=== PATIENT | male | born 1980 | race Caucasian/White ===

== ENCOUNTER 2023-06-08 14:08 | Inpatient (IN) | payer OTHER ==
[~2023-06-08] VITALS: Ht 170.2 cm; Wt 66.2 kg
[2023-06-08] MEDS ORDERED: PREG75 PO (15:19)
[2023-06-08] MEDS ORDERED: LEVO88TA4 PO (15:19)
[2023-06-08] MEDS ORDERED: METH150T PO (15:19)
[2023-06-08] MEDS ORDERED: OXCA300T70 PO ×2 (15:19)
[2023-06-08] MEDS ORDERED: LINA290C PO (15:19)
[2023-06-08] MEDS ORDERED: VENL-66 PO (15:19)
[2023-06-08] MEDS ORDERED: BUPR1FIL7 SL (15:19)
[2023-06-08] MEDS ORDERED: AMOX1TAB16 PO (15:19)
[2023-06-08] MEDS ORDERED: PANT20TA18 PO (15:19)
[2023-06-08] MEDS ORDERED: CALC625T PO (15:19)
[2023-06-08] MEDS ORDERED: VENL-67 PO (15:19)
[2023-06-08] MEDS ORDERED: CLOZ25TA52 PO (15:19)
[2023-06-08] MEDS ORDERED: LEVAHFA IH (15:19)
[2023-06-08 15:39] LABS: BASOPHILS % (AUTO) 0.7 % (0.0-2.0); EOSINOPHILS % (AUTO) 1.4 % (1.0-6.0); HEMATOCRIT 37.4 % (41-53); HEMOGLOBIN 12.6 g/dL (13.5-17.5); LYMPHOCYTES # (AUTO) 2.9 K/uL (1.0-4.8); MEAN CORPUSCULAR HEMOGLOBIN 32.3 pg (26.0-34.0); MEAN CORPUSCULAR HGB CONC 33.6 G/dL (31.0-37.0); MEAN CORPUSCULAR VOLUME 96 fL (80-100); MONOCYTES # (AUTO) 0.8 K/uL (0.1-1.0); MONOCYTES % (AUTO) 10.1 % (2.0-9.0); NEUTROPHILS # (AUTO) 4.4 K/uL (1.8-7.7); NEUTROPHILS % (AUTO) 52.8 % (40.0-70.0); PLATELET COUNT (AUTO) 225 K/uL (150-450); RED BLOOD CELL COUNT(AUTO) 3.89 MIL/uL (4.50-5.90); RED CELL DISTRIBUTION WIDTH 13.2 % (11.5-14.5); WHITE BLOOD COUNT (AUTO) 8.4 K/uL (4.5-11.0)
[2023-06-08] MEDS: MAG HYDROX/ALUMINUM HYD/SIMETH 30 ML SUSPENSION UDCUP PO ONE (15:39)
[2023-06-08] MEDS: ACETAMINOPHEN 500 MG TABLET PO ONE (15:40)
[2023-06-08] MEDS: ONDANSETRON HCL 4 MG/2 ML VIAL IVP ONE (15:46)
[2023-06-08] MEDS: FAMOTIDINE 20 MG/2 ML VIAL IVP ONE (15:46)
[2023-06-08 15:47] LABS: ANION GAP 6 mmol/L (8-16); CALCIUM, TOTAL 8.9 mg/dL (8.8-10.5); CARBON DIOXIDE 30 mmol/L (22-29); CHLORIDE 103 mmol/L (98-107); CREATININE 0.66 mg/dL (0.60-1.30); GLOMERULAR FILTR. RATE CALC > 60 mL/min (>60); GLUCOSE,RANDOM 86 mg/dL (70-110); POTASSIUM 4.2 mmol/L (3.5-5.1); SODIUM SERUM 138 mmol/L (136-145); UREA NITROGEN, BLOOD 18 mg/dL (7-18)
[2023-06-08 15:52] LABS: PROTHROMBIN TIME 10.4 SEC (9.4-11.6)
[2023-06-08 15:53] LABS: B-TYPE NATRIURETIC PEPTIDE 21 pg/mL (0-100)
[2023-06-08 15:55] LABS: TROPONIN I-HIGH SENSITIVITY 4 ng/L (<76)
[2023-06-08] MEDS ORDERED: IOHEXOL 350 MG/ML 100 ML VIAL ONE (15:59)
[2023-06-08 16:00] LABS: ALANINE AMINOTRANSFERASE 24 U/L (12-78); ALBUMIN 3.4 g/dL (3.4-5.0); ALKALINE PHOSPHATASE 82 U/L (46-116); ASPARTATE AMINOTRANSFERASE 13 U/L (15-37); BILIRUBIN,TOTAL 0.1 mg/dL (0.1-1.0); CREATINE KINASE, TOTAL ONLY 74 U/L (39-308); LIPASE 35 U/L (16-77); TOTAL PROTEIN, SERUM 6.5 g/dL (6.4-8.2)
[2023-06-08] MEDS ORDERED: SODIUM CHLORIDE 0.9% 100 ML ONE (16:00)
[2023-06-08 16:04] LABS: COVID AG,FIA SOURCE NASAL SWAB
[2023-06-08 16:28] LABS: SARS-COV2 (COVID) ANTIGEN,FIA Negative (Negative)
[2023-06-08] MEDS ORDERED: ACETAMINOPHEN 325 MG TABLET PO PRN (18:15)
[2023-06-08] MEDS ORDERED: PEG 3350/NA SULF,BICARB,CL/KCL 4000 ML SOLUTION PO ONE (18:15)
[2023-06-08] MEDS ORDERED: 0.9% SODIUM CHLORIDE 10 ML SYRINGE IVP PRN (18:15)
[2023-06-08] MEDS: PEG 3350/NA SULF,BICARB,CL/KCL 4000 ML SOLUTION PO ONE (19:00)
[2023-06-08] MEDS ORDERED: ZOLPIDEM TARTRATE 5 MG TABLET PO PRN (19:30)
[2023-06-08 20:30] VITALS: BP 106/69; PULSE 64; RESP 18; TEMP 98.1
[2023-06-08] MEDS: OXcarbazepine 300 MG TABLET PO SCH (21:05)
[2023-06-08] MEDS: PREGABALIN 75 MG CAPSULE PO SCH (21:05)
[2023-06-08] MEDS: CloZAPine 25 MG TABLET PO SCH (21:10)
[2023-06-08] MEDS: AMOX TR/POT CLAV 875 MG/125 MG TABLET PO SCH (21:10)
[2023-06-08] MEDS: ACETAMINOPHEN 325 MG TABLET PO PRN (22:21)
[2023-06-08] MEDS: HEPARIN SODIUM,PORCINE 5,000 UNITS/ML VIAL SQ SCH (23:53)
[2023-06-09 03:33] VITALS: BP 109/70; PULSE 62; RESP 19; TEMP 98.2
[2023-06-09] MEDS: LEVOTHYROXINE SODIUM 88 MCG TABLET PO SCH (05:31)
[2023-06-09 06:57] LABS: BASOPHILS % (AUTO) 0.5 % (0.0-2.0); EOSINOPHILS % (AUTO) 0.7 % (1.0-6.0); HEMATOCRIT 34.9 % (41-53); HEMOGLOBIN 11.7 g/dL (13.5-17.5); LYMPHOCYTES # (AUTO) 1.6 K/uL (1.0-4.8); LYMPHOCYTES % (AUTO) 30.7 % (22.0-44.0); MEAN CORPUSCULAR HEMOGLOBIN 32.4 pg (26.0-34.0); MEAN CORPUSCULAR HGB CONC 33.4 G/dL (31.0-37.0); MEAN CORPUSCULAR VOLUME 97 fL (80-100); MONOCYTES # (AUTO) 0.5 K/uL (0.1-1.0); MONOCYTES % (AUTO) 9.6 % (2.0-9.0); NEUTROPHILS # (AUTO) 3.1 K/uL (1.8-7.7); NEUTROPHILS % (AUTO) 58.5 % (40.0-70.0); PLATELET COUNT (AUTO) 201 K/uL (150-450); RED CELL DISTRIBUTION WIDTH 13.4 % (11.5-14.5); WHITE BLOOD COUNT (AUTO) 5.4 K/uL (4.5-11.0)
[2023-06-09 07:19] LABS: ALANINE AMINOTRANSFERASE 20 U/L (12-78); ALBUMIN 3.2 g/dL (3.4-5.0); ALKALINE PHOSPHATASE 77 U/L (46-116); ANION GAP 7 mmol/L (8-16); ASPARTATE AMINOTRANSFERASE 15 U/L (15-37); BILIRUBIN,TOTAL 0.4 mg/dL (0.1-1.0); CALCIUM, TOTAL 8.9 mg/dL (8.8-10.5); CARBON DIOXIDE 28 mmol/L (22-29); CHLORIDE 102 mmol/L (98-107); CREATININE 0.62 mg/dL (0.60-1.30); GLOMERULAR FILTR. RATE CALC > 60 mL/min (>60); GLUCOSE,RANDOM 82 mg/dL (70-110); POTASSIUM 3.9 mmol/L (3.5-5.1); SODIUM SERUM 137 mmol/L (136-145); TOTAL PROTEIN, SERUM 6.1 g/dL (6.4-8.2); UREA NITROGEN, BLOOD 12 mg/dL (7-18)
[2023-06-09 08:00] VITALS: BP 128/74; PULSE 68; RESP 20; TEMP 97.2; O2SAT 99
[2023-06-09 08:09] VITALS: BP 116/60; PULSE 69; RESP 18; TEMP 97.8
[2023-06-09] MEDS: PANTOPRAZOLE SODIUM 40 MG DR TABLET PO SCH (08:54)
[2023-06-09] MEDS: OXcarbazepine 300 MG TABLET PO SCH (08:54)
[2023-06-09] MEDS: SODIUM CHLORIDE 0.9% 1,000 ML IV SCH (16:57)
[2023-06-09 17:38] VITALS: BP 107/62; PULSE 82; RESP 20; TEMP 97.2; O2SAT 99
[2023-06-09 18:20] LABS: BASOPHILS % (AUTO) 0.5 % (0.0-2.0); EOSINOPHILS % (AUTO) 0.9 % (1.0-6.0); HEMATOCRIT 36.1 % (41-53); HEMOGLOBIN 12.1 g/dL (13.5-17.5); LYMPHOCYTES # (AUTO) 2.3 K/uL (1.0-4.8); MEAN CORPUSCULAR HEMOGLOBIN 32.1 pg (26.0-34.0); MEAN CORPUSCULAR HGB CONC 33.4 G/dL (31.0-37.0); MEAN CORPUSCULAR VOLUME 96 fL (80-100); MONOCYTES # (AUTO) 0.6 K/uL (0.1-1.0); MONOCYTES % (AUTO) 9.2 % (2.0-9.0); NEUTROPHILS # (AUTO) 3.2 K/uL (1.8-7.7); NEUTROPHILS % (AUTO) 52.4 % (40.0-70.0); PLATELET COUNT (AUTO) 197 K/uL (150-450); RED BLOOD CELL COUNT(AUTO) 3.76 MIL/uL (4.50-5.90); RED CELL DISTRIBUTION WIDTH 13.3 % (11.5-14.5); WHITE BLOOD COUNT (AUTO) 6.1 K/uL (4.5-11.0)
[2023-06-09 18:26] LABS: TROPONIN I-HIGH SENSITIVITY 5 ng/L (<76)
[2023-06-09 19:25] VITALS: BP 111/71; PULSE 63; RESP 18; TEMP 98.2
[2023-06-09 21:53] VITALS: BP 123/82; PULSE 78; RESP 18; TEMP 97.9
[2023-06-09 23:01] LABS: GLUCOMETER DEV NAME(LOC) 4E.2; GLUCOSE,POINT OF CARE 74 MG/DL (70-110)
[2023-06-10 00:54] VITALS: BP 128/70; PULSE 53; RESP 18; TEMP 97.6
[2023-06-10 05:06] VITALS: BP 99/56; PULSE 71; RESP 18; TEMP 98.2
[2023-06-10 08:04] VITALS: BP 111/61; PULSE 70; RESP 18; TEMP 98
[2023-06-10] MEDS ORDERED: LEVALBUTEROL TARTRATE HFA 45 MCG/PUFF 15 GM INHALER IH PRN (15:30)
[2023-06-10] MEDS ORDERED: IBUPROFEN 600 MG TABLET PO PRN (15:30)
[2023-06-10] MEDS ORDERED: PANTOPRAZOLE SODIUM 40 MG DR TABLET PO SCH (16:00)
[2023-06-10] MEDS: LACTULOSE 20 GM/30 ML SOLUTION UDCUP PO SCH (16:25)
[2023-06-10] MEDS: VENLAFAXINE HCL 75 MG ER CAPSULE PO ONE (16:26)
[2023-06-10] MEDS: VENLAFAXINE HCL 37.5 MG ER CAPSULE PO ONE (16:26)
[2023-06-10] MEDS: BRIMONIDINE TARTRATE 0.1% 5 ML OPHTHALMIC SOLUTION OU SCH (16:27)
[2023-06-10] MEDS: DORZOLAMIDE HCL 2% 10 ML OPHTHALMIC SOLUTION OU SCH (16:27)
[2023-06-10] MEDS: BUPRENORPHINE HCL/NALOXONE HCL 2-0.5 MG SUBLINGUAL TABLET SL ONE (16:40)
[2023-06-10 20:07] VITALS: BP 109/58; PULSE 73; RESP 18; TEMP 97.6
[2023-06-10] MEDS ORDERED: [UNRECOGNIZED DRUG - OTHER] PO SCH (21:00)
[2023-06-10] MEDS: LATANOPROST 0.005% 2.5 ML OPHTHALMIC SOLUTION OU SCH (21:07)
[2023-06-10] MEDS: PANTOPRAZOLE SODIUM 40 MG DR TABLET PO SCH (21:09)
[2023-06-11 04:39] VITALS: BP 118/73; PULSE 79; RESP 18; TEMP 98.1
[2023-06-11] MEDS: LINACLOTIDE 145 MCG CAPSULE PO SCH (06:26)
[2023-06-11] MEDS ORDERED: LINACLOTIDE 290 MCG CAPSULE PO SCH (06:30)
[2023-06-11 08:08] VITALS: BP 111/60; PULSE 60; RESP 18; TEMP 98.3
[2023-06-11] MEDS: DOCUSATE SODIUM 100 MG CAPSULE PO SCH (08:44)
[2023-06-11] MEDS: CALCIUM POLYCARBOPHIL 625 MG TABLET PO SCH (08:46)
[2023-06-11] MEDS: BUPRENORPHINE HCL/NALOXONE HCL 2-0.5 MG SUBLINGUAL TABLET SL SCH (08:56)
[2023-06-11] MEDS ORDERED: [UNRECOGNIZED DRUG - OTHER] PO SCH (09:00)
[2023-06-11] MEDS ORDERED: [UNRECOGNIZED DRUG - OTHER] SL SCH (09:00)
[2023-06-11] MEDS: VENLAFAXINE HCL 37.5 MG ER CAPSULE PO SCH (12:46)
[2023-06-11] MEDS: VENLAFAXINE HCL 75 MG ER CAPSULE PO SCH (12:46)
[2023-06-11 20:46] VITALS: BP 123/62; PULSE 77; RESP 18; TEMP 97.8
[2023-06-12 04:50] VITALS: BP 105/67; PULSE 68; RESP 18; TEMP 98.1
[2023-06-12 08:49] VITALS: BP 106/75; PULSE 68; RESP 18; TEMP 98.2
[2023-06-12] MEDS ORDERED: BUPR1TAB45 SL (16:53)
[2023-06-12] MEDS ORDERED: BRIM5DRO32 OU (16:59)
[2023-06-12] MEDS ORDERED: DOCU-385 PO (17:06)
[2023-06-12] MEDS ORDERED: DORZ10DR6 OU (17:07)
[2023-06-12] MEDS ORDERED: LACT10SO10 PO (17:10)
[2023-06-12] MEDS ORDERED: XALA2.5OS OU (17:14)
[2023-06-12] MEDS ORDERED: ACET-2247 PO (17:16)
[2023-06-12] MEDS ORDERED: IBUP-1492 PO (17:17)
[2023-06-12] MEDS ORDERED: ZOLP-280 PO (17:17)
[2023-06-12 20:11] VITALS: BP 114/67; PULSE 91; RESP 19; TEMP 98.4
== END 2023-06-12 22:30 | DRG 395 ==
LOC: EMS 14:09 → 6N 18:56 → 5S 06-09 19:44 → 6S 06-10 19:30
PROVIDERS: ADMIT Hospitalist; ATTEND Hospitalist
DX: T18.4XXA Foreign body in colon, initial encounter (principal); E03.9 Hypothyroidism, unspecified; J44.9 Chronic obstructive pulmonary disease, unspecified; F31.9 Bipolar disorder, unspecified; Z20.822 Contact with and (suspected) exposure to COVID-19; Z88.1 Allergy status to other antibiotic agents; W44.E9XA Other non-magnetic metal objects entering into or through a natural orifice, initial encounter; Y93.89 Activity, other specified; Y92.89 Other specified places as the place of occurrence of the external cause; Y99.8 Other external cause status
CPT/HCPCS: 70450; 70486; 71045; 72125; 74018; 74019; 74176; 74177; 80053; 82271; 82550; 82962; 83690; 83880; 84484; 85025; 85610; 85730; 93005; 99285; J1644; J2405; J3490; J7050; Q9967; 36415-L1; 36415-TC

== ENCOUNTER 2024-11-02 23:38 | Inpatient (IN) | payer OTHER ==
[~2024-11-02] VITALS: Ht 170.2 cm; Wt 78.0 kg
[~2024-11-02 23:38] MED LIST: ARIP2TAB27 PO; ARIP2TAB3 PO; BISA10SU11 PR; BRIM5DRO9 OU; BUPR1FIL5 SL; BUPR1TAB46 SL; CLOZ25TA52 PO; DOCU-385 PO; DORZ10DR32 OU; HYDR30CR39 TP; LATA2.5D7 OU; LEVA15HF3 IH; LEVO88TA4 PO; LINA290C PO; MAGN-169 PO; MINE133E26 PR; NALO4SPR NASAL; OMEP-148 PO; ONDA-104 PO; OXCA300T70 PO; PANT20TA PO; SENN-376 PO; SUCR1TAB2 PO; VENL-68 PO
[2024-11-03 01:02] LABS: PLATELET COUNT (AUTO) 334 K/uL (150-450); RED BLOOD CELL COUNT(AUTO) 3.71 MIL/uL (4.50-5.90); RED CELL DISTRIBUTION WIDTH 13.2 % (11.5-14.5); WHITE BLOOD COUNT (AUTO) 8.6 K/uL (4.5-11.0)
[2024-11-03 01:06] LABS: CALCIUM, TOTAL 8.7 mg/dL (8.8-10.5); CREATININE 0.76 mg/dL (0.60-1.30); GLOMERULAR FILTR. RATE CALC > 60 mL/min (>60); GLUCOSE,RANDOM 115 mg/dL (70-110); SODIUM SERUM 142 mmol/L (136-145); UREA NITROGEN, BLOOD 16 mg/dL (7-18)
[2024-11-03 02:34] LABS: APPEARANCE,URINE CLEAR (CLEAR); GLUCOSE, URINE (UA) NEGATIVE (NEGATIVE); LEUKOCYTE ESTERASE ,URINE NEGATIVE (NEGATIVE); NITRATE,URINE NEGATIVE (NEGATIVE); OCCULT BLOOD,URINE NEGATIVE (NEGATIVE); PH,URINE DRUG SCREEN 6.5 (5.0-8.0); SPECIFIC GRAVITIY, URINE 1.011 (1.003-1.030)
[2024-11-03 02:40] LABS: ALCOHOL, URINE DRUG SCREEN NEGATIVE (NEGATIVE); AMPHET/METH SCREEN,URINE NEGATIVE (NEGATIVE); BARBITURATE SCREEN, URINE NEGATIVE (NEGATIVE); CANNABINOID SCREEN,URINE NEGATIVE (NEGATIVE); COCAINE SCREEN,URINE NEGATIVE (NEGATIVE); METHADONE SCREEN, URINE NEGATIVE (NEGATIVE)
[2024-11-03] MEDS: PANTOPRAZOLE SODIUM 40 MG/VIAL IVP ONE (04:04)
[2024-11-03] MEDS: SODIUM CHLORIDE 0.9% 1,000 ML IV ONE (04:04)
[2024-11-03] MEDS ORDERED: FLUMAZENIL 0.1 MG/ML 5 ML VIAL IVP ONE (05:21)
[2024-11-03] MEDS ORDERED: SODIUM TETRADECYL SULFATE 3% 60 MG/2 ML VIAL IVP ONE (05:21)
[2024-11-03] MEDS ORDERED: ATROPINE SULFATE 0.1 MG/ML 10 ML SYRINGE IVP ONE (05:21)
[2024-11-03] MEDS ORDERED: EPINEPHrine 1:10,000 [1 MG/10 ML] SYRINGE ONE (05:21)
[2024-11-03] MEDS ORDERED: NALOXONE HCL 0.4 MG/ML VIAL ONE (05:21)
[2024-11-03] MEDS ORDERED: FentaNYL CITRATE PF 100 MCG/2 ML VIAL IVP PRN (06:30)
[2024-11-03] MEDS ORDERED: MEPERIDINE-PF 25 MG/ML VIAL IVP PRN (06:30)
[2024-11-03] MEDS: OXYGEN THERAPY IH SCH (08:00)
[2024-11-03 08:13] VITALS: BP 122/83; PULSE 71; RESP 18; TEMP 98; O2SAT 100
[2024-11-03] MEDS ORDERED: LINA145C PO (10:50)
[2024-11-03] MEDS ORDERED: HYDR-4808 PO (10:50)
[2024-11-03] MEDS ORDERED: LACT10SO85 PO (10:50)
[2024-11-03] MEDS: PEG 3350/NA SULF,BICARB,CL/KCL 4000 ML SOLUTION PO ONE (11:27)
[2024-11-03] MEDS ORDERED: DEXAMETHASONE SOD PHOS 4 MG/ML VIAL ONE (12:00)
[2024-11-03] MEDS ORDERED: FentaNYL CITRATE PF 100 MCG/2 ML VIAL ONE (12:00)
[2024-11-03] MEDS ORDERED: PROPOFOL 1% 20 ML VIAL IVP ONE (12:00)
[2024-11-03] MEDS ORDERED: MIDAZOLAM HCL 2 MG/2 ML VIAL ONE (12:00)
[2024-11-03] MEDS ORDERED: SUGAMMADEX SODIUM 200 MG/2 ML VIAL IVP ONE (12:00)
[2024-11-03] MEDS ORDERED: ROCURONIUM BROMIDE 10 MG/ML 5 ML VIAL ONE (12:00)
[2024-11-03] MEDS ORDERED: LIDOCAINE/PF 2% 5 ML VIAL ONE (12:00)
[2024-11-03] MEDS ORDERED: ONDANSETRON HCL 4 MG/2 ML VIAL ONE (12:00)
[2024-11-03 19:19] VITALS: BP 135/64; PULSE 85; RESP 18; TEMP 97.8; O2SAT 96
[2024-11-03] MEDS: MELATONIN 3 MG TABLET PO PRN (21:58)
[2024-11-04] MEDS: ZOLPIDEM TARTRATE 5 MG TABLET PO ONE (00:19)
[2024-11-04 04:09] VITALS: BP 104/68; PULSE 79; RESP 17; TEMP 97.9; O2SAT 97
[2024-11-04 07:16] VITALS: BP 103/73; PULSE 75; RESP 20; TEMP 98.8; O2SAT 98
[2024-11-04] MEDS ORDERED: SODIUM CHLORIDE 0.9% 1,000 ML ONE (10:24)
[2024-11-04] MEDS ORDERED: FLUMAZENIL 0.1 MG/ML 5 ML VIAL IVP ONE (11:16)
[2024-11-04] MEDS ORDERED: SODIUM TETRADECYL SULFATE 3% 60 MG/2 ML VIAL IVP ONE (11:17)
[2024-11-04] MEDS ORDERED: EPINEPHrine 1:10,000 [1 MG/10 ML] SYRINGE ONE (11:17)
[2024-11-04] MEDS ORDERED: NALOXONE HCL 0.4 MG/ML VIAL ONE (11:17)
[2024-11-04] MEDS ORDERED: ATROPINE SULFATE 0.1 MG/ML 10 ML SYRINGE IVP ONE (11:17)
[2024-11-04] MEDS: SODIUM CHLORIDE 0.9% 1,000 ML IV ONE (11:48)
[2024-11-04] MEDS ORDERED: PROPOFOL 1% 20 ML VIAL IVP ONE (12:00)
[2024-11-04] MEDS ORDERED: IPRATROPIUM BROMIDE 0.5 MG/2.5 ML NEB SOLUTION NEB PRN (12:15)
[2024-11-04] MEDS ORDERED: MAGNESIUM HYDROXIDE SUSPENSION 30 ML UDCUP PO PRN (12:15)
[2024-11-04] MEDS ORDERED: ALBUTEROL SULFATE 2.5 MG/0.5 ML NEB SOLUTION NEB PRN (12:15)
[2024-11-04] MEDS ORDERED: ONDANSETRON HCL 4 MG/2 ML VIAL IVP PRN (12:15)
[2024-11-04] MEDS ORDERED: BISACODYL 10 MG RECTAL RECTAL SUPPOSITORY PR PRN (12:15)
[2024-11-04] MEDS ORDERED: SODIUM CHLORIDE 0.9% 1,000 ML IV ONE (15:00)
[2024-11-04] MEDS: HEPARIN SODIUM,PORCINE 5,000 UNITS/ML VIAL SQ SCH (16:48)
[2024-11-04 17:00] VITALS: BP 115/85; PULSE 75; RESP 20; TEMP 97.3; O2SAT 100
[2024-11-04 20:10] VITALS: BP 128/74; PULSE 78; RESP 18; TEMP 98.2; O2SAT 100
[2024-11-04] MEDS: ZOLPIDEM TARTRATE 5 MG TABLET PO PRN (22:23)
[2024-11-05] MEDS: ACETAMINOPHEN 325 MG TABLET PO PRN (01:37)
[2024-11-05 03:20] VITALS: BP 105/61; PULSE 78; RESP 18; TEMP 97.7; O2SAT 97
[2024-11-05] MEDS: BUPRENORPHINE HCL/NALOXONE HCL 8-2 MG SUBLINGUAL TABLET SL ONE (03:21)
[2024-11-05] MEDS: PANTOPRAZOLE SODIUM 40 MG DR TABLET PO SCH (08:49)
[2024-11-05] MEDS ORDERED: LEVALBUTEROL TARTRATE HFA 45 MCG/PUFF 15 GM INHALER IH PRN (10:45)
[2024-11-05] MEDS ORDERED: MAGNESIUM HYDROXIDE SUSPENSION 30 ML UDCUP PO PRN (10:45)
[2024-11-05] MEDS ORDERED: SENNOSIDES 8.6 MG TABLET PO PRN (10:45)
[2024-11-05] MEDS ORDERED: MISC MED-CONVERTED FROM AMBULATORY (Naloxone HCl (Narcan) 1 SPRAY) NASAL PRN (10:45)
[2024-11-05] MEDS: LINACLOTIDE 145 MCG CAPSULE PO SCH (12:02)
[2024-11-05] MEDS: SUCRALFATE 1 GM TABLET PO SCH (12:02)
[2024-11-05] MEDS: LEVOTHYROXINE SODIUM 88 MCG TABLET PO SCH (12:03)
[2024-11-05] MEDS: BUPRENORPHINE HCL/NALOXONE HCL 2-0.5 MG SUBLINGUAL TABLET SL SCH (12:04)
[2024-11-05] MEDS: DORZOLAMIDE/TIMOLOL 2-0.5% [22.3-6.8MG/ML] 10 ML OPHTHALMIC SOLUTION OU SCH (12:08)
[2024-11-05] MEDS ORDERED: SODIUM CHLORIDE 0.9% 500 ML IV ONE (13:56)
[2024-11-05] MEDS: PIPERACILLIN/TAZO 3.375 GM/D5W 50 ML IV SCH (14:14)
[2024-11-05] MEDS: VANCOMYCIN 1.5 GM/WATER(PEG) 300 ML IV ONE (15:25)
[2024-11-05] MEDS: BRIMONIDINE TARTRATE 0.2% 5 ML OPHTHALMIC SOLUTION OU SCH (15:26)
[2024-11-05] MEDS: LACTULOSE 20 GM/30 ML SOLUTION UDCUP PO SCH (15:28)
[2024-11-05 19:57] VITALS: BP 110/62; PULSE 85; RESP 20; TEMP 98; O2SAT 100
[2024-11-05] MEDS: LATANOPROST 0.005% 2.5 ML OPHTHALMIC SOLUTION OU SCH (21:00)
[2024-11-05] MEDS: BUPRENORPHINE HCL/NALOXONE HCL 8-2 MG SUBLINGUAL TABLET SL SCH (21:35)
[2024-11-05] MEDS: *CLINICAL-LEVOFLOXACIN IVPB DOSING CLINICAL ONE (22:29)
[2024-11-05] MEDS: LEVOFLOXACIN 750 MG/D5% WATER 150 ML IV SCH (23:42)
[2024-11-06] MEDS ORDERED: CLINDAMYCIN 300 MG/D5% WATER 50 ML IV SCH
[2024-11-06] MEDS ORDERED: VANCOMYCIN 1GM/WATER(PEG/NADA) 200 ML IV SCH
[2024-11-06] MEDS: HYDROCORTISONE 1% 30 GM CREAM TP SCH (09:00)
[2024-11-06 09:03] VITALS: BP 113/64; PULSE 87; RESP 18; TEMP 97.8; O2SAT 97
[2024-11-06 18:31] LABS: PLATELET COUNT (AUTO) 281 K/uL (150-450); RED BLOOD CELL COUNT(AUTO) 3.67 MIL/uL (4.50-5.90); RED CELL DISTRIBUTION WIDTH 13.5 % (11.5-14.5); WHITE BLOOD COUNT (AUTO) 6.8 K/uL (4.5-11.0)
[2024-11-06 18:40] LABS: CALCIUM, TOTAL 8.1 mg/dL (8.8-10.5); CREATININE 0.74 mg/dL (0.60-1.30); GLOMERULAR FILTR. RATE CALC > 60 mL/min (>60); GLUCOSE,RANDOM 122 mg/dL (70-110); SODIUM SERUM 141 mmol/L (136-145); UREA NITROGEN, BLOOD 7 mg/dL (7-18)
[2024-11-06 18:45] LABS: ASPARTATE AMINOTRANSFERASE 15 U/L (15-37); TOTAL PROTEIN, SERUM 6.0 g/dL (6.4-8.2)
[2024-11-06 20:22] VITALS: BP 112/75; PULSE 98; RESP 18; TEMP 98.1; O2SAT 99
[2024-11-07 06:57] VITALS: BP 107/60; PULSE 90; RESP 18; TEMP 98.2; O2SAT 99
[2024-11-07 10:00] VITALS: BP 110/68; PULSE 85; RESP 18; TEMP 98.2; O2SAT 98
[2024-11-07] MEDS ORDERED: LINEZOLID 600 MG TABLET PO SCH (10:30)
[2024-11-07 17:11] VITALS: BP 119/74; PULSE 89; RESP 18; TEMP 98.8; O2SAT 99
[2024-11-07 20:20] VITALS: BP 105/70; PULSE 89; RESP 18; TEMP 98.4; O2SAT 97
[2024-11-08 06:19] VITALS: BP 103/66; PULSE 87; RESP 18; TEMP 98.1; O2SAT 98
[2024-11-08 11:28] LABS: PLATELET COUNT (AUTO) 246 K/uL (150-450); RED BLOOD CELL COUNT(AUTO) 3.43 MIL/uL (4.50-5.90); RED CELL DISTRIBUTION WIDTH 13.1 % (11.5-14.5); WHITE BLOOD COUNT (AUTO) 6.7 K/uL (4.5-11.0)
[2024-11-08] MEDS ORDERED: DOXY150T8 PO (11:50)
[2024-11-08 12:11] VITALS: BP 110/70; PULSE 85; RESP 18; TEMP 98.1; O2SAT 98
== END 2024-11-08 19:45 | DRG 394 ==
LOC: EMS 11-03 00:48 → EDH 11-03 06:40 → 6S 11-03 08:54
PROVIDERS: ADMIT Hospitalist; ATTEND Hospitalist
PROC: 0HQCXZZ Repair Left Upper Arm Skin, External Approach (ICD-10-PCS; 2024-11-03)
PROC: 0DJ08ZZ Inspection of Upper Intestinal Tract, Via Natural or Artificial Opening Endoscopic (ICD-10-PCS; principal; 2024-11-03 06:05)
PROC: 0DCL8ZZ Extirpation of Matter from Transverse Colon, Via Natural or Artificial Opening Endoscopic (ICD-10-PCS; 2024-11-04)
PROC: 0DCM8ZZ Extirpation of Matter from Descending Colon, Via Natural or Artificial Opening Endoscopic (ICD-10-PCS; 2024-11-04)
PROC: 0DCH8ZZ Extirpation of Matter from Cecum, Via Natural or Artificial Opening Endoscopic (ICD-10-PCS; 2024-11-04)
PROC: GZ58ZZZ Individual Psychotherapy, Cognitive-Behavioral (ICD-10-PCS; 2024-11-05)
PROC: GZ56ZZZ Individual Psychotherapy, Supportive (ICD-10-PCS; 2024-11-05)
DX: T18.4XXA Foreign body in colon, initial encounter (principal); F31.4 Bipolar disorder, current episode depressed, severe, without psychotic features; R45.851 Suicidal ideations; T18.9XXA Foreign body of alimentary tract, part unspecified, initial encounter; H40.9 Unspecified glaucoma; F20.9 Schizophrenia, unspecified; S51.812A Laceration without foreign body of left forearm, initial encounter; E03.9 Hypothyroidism, unspecified; E78.00 Pure hypercholesterolemia, unspecified; W44.8XXA Other foreign body entering into or through a natural orifice, initial encounter; K59.00 Constipation, unspecified; J44.9 Chronic obstructive pulmonary disease, unspecified; Y93.89 Activity, other specified; Y92.89 Other specified places as the place of occurrence of the external cause; Y99.8 Other external cause status; Z88.2 Allergy status to sulfonamides; Z88.8 Allergy status to other drugs, medicaments and biological substances; Z88.1 Allergy status to other antibiotic agents; Z79.899 Other long term (current) drug therapy; Z91.041 Radiographic dye allergy status; Z91.013 Allergy to seafood; Z87.11 Personal history of peptic ulcer disease
CPT/HCPCS: 71045; 71250; 72192; 74018; 74150; 80048; 80053; 80307; 81003; 85025; 85610; 87081; 96361; 96374; 99291; G0480; J0169; J0461; J1100; J1200; J1644; J1956; J2250; J2312; J2405; J2470; J2543; J2704; J3010; J3490; J7030; J7040; 36415-L1; 36415-TC; Z7610

== ENCOUNTER 2025-03-26 16:52 | Inpatient (IN) | payer OTHER ==
[~2025-03-26] VITALS: Ht 165.1 cm; Wt 70.9 kg
[~2025-03-26 16:52] MED LIST changes: -ARIP2TAB27 PO; -BISA10SU11 PR; -DOCU-385 PO; +DOXY150T8 PO; +HYDR-4808 PO; +LACT10SO85 PO; +LINA145C PO; -LINA290C PO; -OMEP-148 PO; -ONDA-104 PO; -PANT20TA PO
[2025-03-26] MEDS ORDERED: PANT-31 PO (19:12)
[2025-03-26] MEDS ORDERED: PRUC2TAB2 PO (19:12)
[2025-03-26] MEDS ORDERED: BUPR-345 PO (19:12)
[2025-03-26] MEDS ORDERED: CLOZ50TA9 PO (19:12)
[2025-03-26 19:22] LABS: PLATELET COUNT (AUTO) 334 K/uL (150-450); RED BLOOD CELL COUNT(AUTO) 3.80 MIL/uL (4.50-5.90); RED CELL DISTRIBUTION WIDTH 13.8 % (11.5-14.5); WHITE BLOOD COUNT (AUTO) 7.7 K/uL (4.5-11.0)
[2025-03-26 19:40] LABS: CALCIUM, TOTAL 8.7 mg/dL (8.8-10.5); CREATININE 0.75 mg/dL (0.60-1.30); GLOMERULAR FILTR. RATE CALC > 60 mL/min (>60); GLUCOSE,RANDOM 80 mg/dL (70-110); SODIUM SERUM 141 mmol/L (136-145); UREA NITROGEN, BLOOD 13 mg/dL (7-18)
[2025-03-26 19:43] LABS: ASPARTATE AMINOTRANSFERASE 24.0 U/L (15-37); TOTAL PROTEIN, SERUM 6.3 g/dL (6.4-8.2)
[2025-03-26] MEDS ORDERED: ALBUTEROL SULFATE 2.5 MG/0.5 ML NEB SOLUTION NEB PRN (23:15)
[2025-03-26] MEDS ORDERED: BISACODYL 10 MG RECTAL RECTAL SUPPOSITORY PR PRN (23:15)
[2025-03-26] MEDS ORDERED: IPRATROPIUM BROMIDE 0.5 MG/2.5 ML NEB SOLUTION NEB PRN (23:15)
[2025-03-26] MEDS: DEXTROSE 5%-0.45% SODIUM CHL 1,000 ML IV ONE (23:37)
[2025-03-26] MEDS: HEPARIN SODIUM,PORCINE 5,000 UNITS/ML VIAL SQ SCH (23:39)
[2025-03-27 01:15] VITALS: BP 127/66; PULSE 58; RESP 20; TEMP 97.7; O2SAT 99
[2025-03-27 02:51] LABS: APPEARANCE,URINE CLEAR (CLEAR); GLUCOSE, URINE (UA) NEGATIVE (NEGATIVE); LEUKOCYTE ESTERASE ,URINE NEGATIVE (NEGATIVE); NITRATE,URINE NEGATIVE (NEGATIVE); OCCULT BLOOD,URINE NEGATIVE (NEGATIVE); SPECIFIC GRAVITIY, URINE 1.029 (1.003-1.030)
[2025-03-27] MEDS ORDERED: INFLUENZA VIRUS VACCINE TVS (6MO+) 2025-26/PF 45 MCG/0.5 ML SYRINGE IM. ONE (03:00)
[2025-03-27 08:00] VITALS: BP 117/77; PULSE 69; RESP 20; TEMP 98.2; O2SAT 100
[2025-03-27] MEDS: PANTOPRAZOLE SODIUM 40 MG/VIAL IVP SCH (08:00)
[2025-03-27] MEDS: LINACLOTIDE 145 MCG CAPSULE PO SCH (11:15)
[2025-03-27] MEDS: LEVOTHYROXINE SODIUM 88 MCG TABLET PO SCH (11:15)
[2025-03-27] MEDS ORDERED: PANTOPRAZOLE SODIUM 40 MG DR TABLET PO SCH (11:15)
[2025-03-27] MEDS ORDERED: LEVALBUTEROL TARTRATE HFA 45 MCG/PUFF 15 GM INHALER IH PRN (11:15)
[2025-03-27] MEDS ORDERED: BUPR1FIL3 SL (11:19)
[2025-03-27] MEDS: DORZOLAMIDE/TIMOLOL 2-0.5% [22.3-6.8MG/ML] 10 ML OPHTHALMIC SOLUTION OU SCH (12:14)
[2025-03-27] MEDS: BUPRENORPHINE HCL/NALOXONE HCL 2-0.5 MG SUBLINGUAL TABLET SL SCH (12:15)
[2025-03-27] MEDS: LACTULOSE 20 GM/30 ML SOLUTION UDCUP PO SCH (14:06)
[2025-03-27] MEDS: BRIMONIDINE TARTRATE 0.2% 5 ML OPHTHALMIC SOLUTION OU SCH (15:58)
[2025-03-27] MEDS: BUPRENORPHINE HCL/NALOXONE HCL 8-2 MG SUBLINGUAL TABLET SL SCH (18:57)
[2025-03-27 20:00] VITALS: BP 106/75; PULSE 82; RESP 20; TEMP 97.9; O2SAT 98
[2025-03-27] MEDS: LATANOPROST 0.005% 2.5 ML OPHTHALMIC SOLUTION OU SCH (20:33)
[2025-03-27] MEDS: ACETAMINOPHEN 325 MG TABLET PO PRN (20:38)
[2025-03-28 05:52] VITALS: BP 97/57; PULSE 59; RESP 18; TEMP 97.7; O2SAT 96
[2025-03-28 08:00] VITALS: BP 95/61; PULSE 78; RESP 18; TEMP 97.5; O2SAT 100
[2025-03-28] MEDS: PEG 3350/NA SULF,BICARB,CL/KCL 4000 ML SOLUTION PO ONE (14:19)
[2025-03-28 20:02] VITALS: BP 113/62; PULSE 79; RESP 18; TEMP 98.4; O2SAT 98
[2025-03-29] MEDS: SODIUM PHOSPHATE,MONO-DIBASIC 133 ML ENEMA PR ONE (13:16)
[2025-03-29] MEDS: MAGNESIUM HYDROXIDE SUSPENSION 30 ML UDCUP PO PRN (13:16)
[2025-03-29] MEDS: SENNOSIDES 8.6 MG TABLET PO PRN (13:16)
[2025-03-29 19:59] VITALS: BP 112/77; PULSE 81; RESP 18; TEMP 98.2; O2SAT 96
[2025-03-29] MEDS: ZOLPIDEM TARTRATE 5 MG TABLET PO PRN (21:29)
[2025-03-30 05:55] VITALS: BP 106/70; PULSE 73; RESP 18; TEMP 98.1; O2SAT 97
[2025-03-30 07:35] VITALS: BP 106/61; PULSE 70; RESP 16; TEMP 97.7; O2SAT 100
[2025-03-30 15:24] VITALS: BP 109/62; PULSE 82; RESP 47; TEMP 98.8; O2SAT 98
[2025-03-30] MEDS: MAGNESIUM CITRATE [LEMON] 300 ML ORAL SOLUTION PO ONE ×2 (16:13→16:14)
[2025-03-30] MEDS: CLOTRIMAZOLE 1% 15 GM CREAM TP ONE (16:13)
[2025-03-30 20:13] VITALS: BP 111/65; PULSE 80; RESP 18; TEMP 98.1; O2SAT 97
[2025-03-31] MEDS: ONDANSETRON HCL 4 MG/2 ML VIAL IVP PRN (08:23)
[2025-03-31] MEDS: DEXTROSE 5%-0.45% SODIUM CHL 1,000 ML IV SCH (11:50)
[2025-03-31 13:16] VITALS: BP 122/72; PULSE 82; RESP 18; TEMP 98.6; O2SAT 99
[2025-03-31 19:53] VITALS: BP 107/72; PULSE 77; RESP 18; TEMP 98.4; O2SAT 97
[2025-04-01] VITALS (7 sets, daily range): BP systolic 82–103; BP diastolic 50–79; PULSE 71–86; RESP 17–20; TEMP 97.3–98.2; O2SAT 96–99
[2025-04-01] MEDS: SODIUM CHLORIDE 0.9% 500 ML IV ONE ×2 (05:07→08:48)
[2025-04-01 10:46] LABS: PLATELET COUNT (AUTO) 258 K/uL (150-450); RED BLOOD CELL COUNT(AUTO) 3.54 MIL/uL (4.50-5.90); RED CELL DISTRIBUTION WIDTH 14.0 % (11.5-14.5); WHITE BLOOD COUNT (AUTO) 5.2 K/uL (4.5-11.0)
[2025-04-01 10:54] LABS: CALCIUM, TOTAL 8.3 mg/dL (8.8-10.5); CREATININE 0.74 mg/dL (0.60-1.30); GLOMERULAR FILTR. RATE CALC > 60 mL/min (>60); GLUCOSE,RANDOM 92 mg/dL (70-110); SODIUM SERUM 137 mmol/L (136-145); UREA NITROGEN, BLOOD 11 mg/dL (7-18)
[2025-04-01] MEDS: SODIUM CHLORIDE 0.9% 1,000 ML IV SCH (11:03)
[2025-04-02 04:50] VITALS: BP 110/63; PULSE 64; RESP 18; TEMP 98.1; O2SAT 99
[2025-04-02 06:23] LABS: PLATELET COUNT (AUTO) 237 K/uL (150-450); RED BLOOD CELL COUNT(AUTO) 3.35 MIL/uL (4.50-5.90); RED CELL DISTRIBUTION WIDTH 13.4 % (11.5-14.5); WHITE BLOOD COUNT (AUTO) 4.6 K/uL (4.5-11.0)
[2025-04-02 07:05] VITALS: BP 95/54; PULSE 68; RESP 18; TEMP 97.2; O2SAT 98
[2025-04-02 20:02] VITALS: BP 117/77; PULSE 87; RESP 18; TEMP 98.4; O2SAT 98
[2025-04-03 03:56] VITALS: BP 115/64; PULSE 89; RESP 18; TEMP 98.4; O2SAT 98
[2025-04-03 08:26] VITALS: BP 110/71; PULSE 85; RESP 17; TEMP 98.2; O2SAT 99
== END 2025-04-03 17:25 | DRG 392 ==
LOC: EMS 16:52 → EDH 23:10 → 6N 03-27 01:13
PROVIDERS: ADMIT Hospitalist; ATTEND Hospitalist
DX: K59.00 Constipation, unspecified (principal); E03.9 Hypothyroidism, unspecified; J44.9 Chronic obstructive pulmonary disease, unspecified; F31.9 Bipolar disorder, unspecified; K21.9 Gastro-esophageal reflux disease without esophagitis; E78.00 Pure hypercholesterolemia, unspecified; Z87.11 Personal history of peptic ulcer disease; Z88.1 Allergy status to other antibiotic agents; Z88.2 Allergy status to sulfonamides; Z88.8 Allergy status to other drugs, medicaments and biological substances; Z79.899 Other long term (current) drug therapy
CPT/HCPCS: 74018; 74176; 80048; 80076; 81003; 83690; 83735; 85025; 93005; 99285; G0378; J1644; J2405; J2470; J7030; J7040; 36415-L1; 36415-TC